=== PATIENT | male | born 1960 | race Caucasian/White ===

== ENCOUNTER 2024-03-19 05:41 | Day surgery (SDC) | payer OTHER, SELFPAY ==
[2024-02-24 10:28] VITALS: BMI 24.2
[2024-02-24 10:37] LABS: Hematocrit 39.5 % (39.0-52.0); Hemoglobin 13.2 g/dL (13.0-18.0); Mean Corp Hgb Conc. 33.4 g/dL (33.0-37.0); Mean Corpuscular Volume 92.7 fL (80.0-94.0); Mean Platelet Volume 11.4 fL (7.4-10.4); Platelet Count 231 10^3/uL (130-400); Red Blood Cell Count 4.26 10^6/uL (4.70-6.10); White Blood Cell Count 9.2 10^3/uL (4.8-10.8)
[2024-02-24 11:06] LABS: Blood Urea Nitrogen 20 mg/dl (9-20); Calcium 9.2 mg/dl (8.4-10.2); Carbon Dioxide 27 mmol/L (22-30); Chloride 103 mmol/L (98-107); Estimated Creatinine Clearance 72 ml/min; Glucose 94 mg/dl (70-99); Potassium 4.7 mmol/L (3.5-5.1); Sodium 139 mmol/L (135-145); eGFR > 60.00
[2024-03-19] VITALS (9 sets, daily range): BP systolic 132–163; BP diastolic 70–89; BMI 24.2
[2024-03-19] MEDS: TYLENOL 1000 MG PO (06:09)
[2024-03-19] MEDS: NORMOSOL-R/PLASMALYTE-A 1000 IV (06:19)
== END 2024-03-19 11:03 | disposition home or self-care (01) ==
LOC: SDS 05:41
PROVIDERS: ATTENDING PHYSICIAN Surgery; FAMILY PHYSICIAN Family Medicine
DX: K40.90 Unilateral inguinal hernia, without obstruction or gangrene, not specified as recurrent (principal); K40.91 Unilateral inguinal hernia, without obstruction or gangrene, recurrent
CPT/HCPCS: 49651; 49650; 36415; 80048; 85027; 93005; C1781